=== PATIENT | male | born 1955 | race Caucasian/White ===

== ENCOUNTER 2019-09-13 15:10 | Emergency (ER) | payer BC ==
[~2019-09-13] VITALS: Ht 193 cm; Wt 102.1 kg
[2019-09-13 15:35] VITALS: BP_SYST 142
--- NOTE | 2019-09-13 15:35 | NUR ---
Patient to ER bed 5 to gown for evaluation. Side rails up.
--- NOTE | 2019-09-13 15:35 | NUR ---
PT CAME TO ER STATES HE HAD EXPOSURE TO EMPLOYEE WHO LEARNED THEY ARE COVID POSITIVE TODAY. PT CAME IN CONCERNED. HE IS AFEBRILE, STATES HE HAS HAD A COUGH FOR 2WEEKS BEFORE EXPOSURE, PT HAS NO PAIN AT THIS TIME AND IS COMFORTABLE IN ROOM.
--- NOTE | 2019-09-13 15:45 | NUR ---
ER at bedside examining patient.
[2019-09-13 15:57] VITALS: BP_SYST 142
--- NOTE | 2019-09-13 15:57 | NUR ---
Patient given written and verbal discharge instructions and verbalizes understanding. ER MD discussed with patient the results and treatment provided. Patient in stable condition. ID arm band removed. Patient educated on pain management and to follow up with PMD. Pain Scale 0/10. Opportunity for questions provided and answered. Medication side effect fact sheet provided.
== END 2019-09-13 15:57 | disposition home or self-care (01) ==
LOC: SED 15:10
DX: Z20.828 Contact with and (suspected) exposure to other viral communicable diseases (principal)
CPT/HCPCS: 99281